=== PATIENT | male | born 1950 | race Caucasian/White ===

== ENCOUNTER 2025-04-15 23:24 | Emergency (ER) | payer MEDICARE, SELFPAY ==
[2025-04-15 23:25] VITALS: BP 0/0; PULSE 0; RESP 0; O2SAT 0
--- NOTE | 2025-04-15 23:35 | ED.CPR ---
HPI - CPR General Chief Complaint: Cardiac Arrest/CPR Stated Complaint: full arrest History of Present Illness HPI narrative: Patient is a 74-year-old male who presents ER in cardiac arrest. EMS outbound call at 2229. Arrived on scene. Patient in cardiac arrest receiving bystander CPR by family. Apparently patient had been having burning chest pain and had taken some Tums which did not help it. He was having discomfort going down his left arm. He was also diaphoretic and cold. He then collapsed on the ground. ACLS protocol followed by EMS. Patient in asystole at each pulse check. Patient transferred to ER with ET tube and left tibial IO. On arrival additional epinephrine given. ET tube checked and in place. Right mainstem on auscultation so ET tube withdrawn and bilateral breath sounds could be heard. Capnography had remained flat at 30 for EMS throughout the resuscitation. Asystole on pulse check. Down time at nearly 1 hour and patient pronounced as at 2325. Related Data Allergies Allergy/AdvReac Type Severity Reaction Status Date / Time NKDA Allergy Unknown Uncoded 04/27/03 14:14 NKFA Allergy Unknown Uncoded 04/27/03 14:14 Review of Systems Review of Systems: ROS unobtainable: Yes unobtainable due to medical condition PMFSH Past Medical History Medical History (Updated 04/16/25 @ 01:01 by Melecio Lucio MD) PTSD (post-traumatic stress disorder) Migraines Hyperlipidemia Glaucoma Surgical History Surgical History (Updated 04/15/25 @ 23:46 by Melecio Lucio MD) History of tonsillectomy Exam Narrative: GENERAL: Unresponsive, well nourished.. HEAD: Normocephalic, atraumatic. EYES: Pupils fixed mid dilated. ENT: Mucous membranes moist. CHEST: Clear to auscultation. No spontaneous respirations. HEART: Pulseless on pulse check. ABDOMEN: Soft, nondistended. EXTREMITIES: No deformity of the upper lower extremities. Left tibial IO. SKIN: Warm, dry, no rash. Pale NEURO: GCS 3 Course Course Emergency Course: Patient's family in Family Service room. Discussed that patient had been pronounced as . cooler service supervisor present. Family will be let back to see the patient. [facility]ist has released the patient. Discharge Plan Discharge Clinical Impression: Cardiac arrest Patient Disposition: Condition: Patient Language: [place]uean Follow-up/Referrals: UNKNOWN,DOCTOR [Primary Care Provider] -
[2025-04-15 23:47] VITALS: BP 0/0; PULSE 0; RESP 0; O2SAT 0
--- NOTE | 2025-04-15 23:50 | PC.NURSE ---
Late Entry: Code Blue Activated. On Arrival: 2320: CPR 2322: Pulse check Epi CPR (Mina) 2324: Pulse Check Rhythm: Asystole pronounce time of 2324.
--- NOTE | 2025-04-15 23:55 | PC.NURSE ---
Prior to arrival: Per EMS family stated pt had been c/o chest pain and shoulder pain. Unknown onset. Family initiated CPR at 2318- 911 called EMS Administered: Total of 9 Epi 2303: ET tube - 7.5 Pt remained in asystole, IO L leg
== END 2025-04-15 23:47 | disposition expired ==
PROVIDERS: Emergency Provider Emergency Medicine
DX: I46.9 Cardiac arrest, cause unspecified (principal); E78.5 Hyperlipidemia, unspecified; H40.9 Unspecified glaucoma
CPT/HCPCS: 92950; 99285